=== PATIENT | female | born 1965 | race Caucasian/White ===

== ENCOUNTER 2016-11-29 14:23 | Emergency (ER) | payer MEDICARE, OTHER ==
--- NOTE | ~2016-11-29 | CR63 ---
[facility] A Service of [facility] & [facility] RADIOLOGY TEXT RESULTS PATIENT: VERONICA HICKMAN LOCATION: [facility] : 63 UNIT #: [id number] AGE: [address]: Neno Graves MD SEX: F ORDER DR: [id number] [facility] [address] [place], [place] [address] [id number] E MR#: [id number] Acc #: [id number] NAME: VERONICA HICKMAN : 1965 SEX: F STUDY DATE/TIME: 11/29/2016 13:50 UNIT: [facility] ROOM: STUDY DESCRIPTION: CR Chest 2 View Attending Physician: Neno Graves M.D. Referring Physician: Vin Mello Aprn Ordering Physician: Neno Graves M.D. Primary Care Physician: Vin Mello Aprn MEDICAL IMAGING REPORT This report is preliminary unless electronic signature is present EXAM Two-view chest 11/29/2016 HISTORY Shortness of air and cough for 1 week COMPARISON Chest 10/18/2015 FINDINGS 2 views of the chest demonstrate clear lungs. No pleural effusion or pneumothorax. Heart size and mediastinum are within normal limits. Pulmonary vasculature unremarkable. IMPRESSION No acute cardiopulmonary findings. Dictated by... Rudy Elias M.D. THIS IS AN ELECTRONICALLY VERIFIED REPORT Rudy Elias M.D. at 12/01/2016 7:47 AM FATMATA/dominique TD: 11/30/2016 13:17 JOB #: [id number] MEDICAL IMAGING REPORT COPY
[~2016-11-29 14:23] MED LIST: ACETAMINOPHEN PO; ADVAIR 5001 DISK W/D PO; ALBUTEROL 0.5ML INH; ALBUTEROL17 GM INH; ASPIRIN PO; ATROVENT HFA12.9 GM NEB; BACTRIM DS TABL1 TAB PO; CHANTIX PO; CIPRO PO; COMBIVENT INH14.7 GM INH; DOXYCYCLINE HY100 M1 PO; DUONEB 2.5-0.5 M3 ML NEB; FLEXERIL PO; HUMIBID L.1 TAB.SR . PO; IBUPROFEN PO; MOBIC15 MG PO; PREDNISONE PO; QVAR7.3 GM INH; SPIRIVA18 MCG INH; [UNRECOGNIZED DRUG - OTHER]
== END 2016-11-29 14:30 | disposition home or self-care (01) ==
LOC: CED 14:23
DX: J44.1 Chronic obstructive pulmonary disease with (acute) exacerbation (principal); F17.200 Nicotine dependence, unspecified, uncomplicated; Z90.49 Acquired absence of other specified parts of digestive tract; Z90.89 Acquired absence of other organs; Z79.899 Other long term (current) drug therapy
CPT/HCPCS: 71020; 94640; 99283; 99284

== ENCOUNTER 2016-12-25 21:35 | Inpatient (IN) | payer MEDICARE, OTHER ==
--- NOTE | ~2016-12-25 | CO ---
Unit #: [id number] #: [id number] Patient: VERONICA HICKMAN [id number] [address] [address] [id number] I MR#: [id number] NAME: VERONICA HICKMAN. ROOM: 330 Age: 51 Sex: F Admission Date: 12/25/2016 : 1965 Attending Physician: Yusuf Kent M.D. Primary Care Physician: Vin Mello, Denisse Consultation Date: 12/26/2016 CONSULTATION REPORT REASON FOR CONSULTATION Chronic obstructive pulmonary disease management. HISTORY OF PRESENT ILLNESS This is a 51-year-old female with a past medical history significant for extensive smoking, at least 1 pack per day since age 9, chronic obstructive pulmonary disease, nocturnal hypoxia. The patient presented to the emergency room with progressive shortness of breath, deep cough, productive sometimes with yellowish sputum. Her oxygen saturation was in the mid 70s on presentation. The patient stated that she has been sick very often with upper respiratory infection and chronic obstructive pulmonary disease (1) for the last two months. The patient stated that she tried to quit multiple times and the longest was nine months, but she always gets back to smoking. The patient was raised in [facility], where she was exposed to so many chemicals. The patient is on Spiriva, Advair and duo-neb. PAST MEDICAL HISTORY 1. Diabetes. 2. Chronic obstructive pulmonary disease. 3. Smoking. 4. Obesity. PAST SURGICAL HISTORY 1. Cholecystectomy. 2. Tonsillectomy. 3. . SOCIAL HISTORY The patient has smoked since age 9 at least half to 1 pack per day. She socially drinks. No history of drug use. FAMILY HISTORY Coronary artery disease and lung cancer. ALLERGIES Codeine. Unit #: [id number] #: [id number] Patient: VERONICA HICKMAN HOME MEDICATIONS 1. Albuterol. 2. Advair. 3. Spiriva. 4. Mucinex. 5. Multivitamin. REVIEW OF SYSTEMS Twelve point review of systems was obtained and was negative except for that mentioned in the history of present illness. PHYSICAL EXAMINATION GENERAL: The patient appears in mild respiratory distress. VITALS: Blood pressure is 141/59, respiratory rate 20, O2 saturations 96%. HEENT: Atraumatic, normocephalic. Extraocular muscles intact. NECK: Supple. No jugular venous distension. No lymphadenopathy. CHEST: Very diminished breath sounds bilaterally with diffuse wheezing. HEART: S1 and S2. No murmur, gallop or rub. ABDOMEN: Soft and nontender. Bowel sounds positive. No hepatosplenomegaly. EXTREMITIES: No edema or cyanosis. SKIN: No rashes. NEUROLOGIC: Awake, alert and oriented times three. No focal motor/sensory deficits. DIAGNOSTIC STUDIES IMAGING: Chest x-ray is normal. LABORATORY: pH 7.40, CO2 59. Creatinine 0.8, white blood cell count 3.8, hemoglobin 13.4. ASSESSMENT 1. Acute hypoxic respiratory failure. 2. Acute exacerbation of chronic obstructive pulmonary disease. 3. Smoking. 4. Morbid obesity. 5. Gestational diabetes. PLAN 1. Will continue oxygen at this point and titrate down/off as tolerated. 2. IV steroids and bronchodilators. 3. Antibiotics. 4. I spent more than 15 minutes counseling regarding smoking cessation. The patient currently is on nicotine patches. 5. Alpha I antitrypsin deficiency screening and PFTs as an outpatient. 6. The patient had a sleep study which was negative for sleep apnea. Dictated by... Johanna Diez TD: 12/26/2016 13:13 JOB #: [id number] Unit #: [id number] #: [id number] Patient: VERONICA HICKMAN CONSULTATION REPORT Page 1 of 1 X SASKIA PEARSON MD CONSULTATION REPORT
--- NOTE | ~2016-12-25 | DS ---
Unit #: [id number] #: [id number] Patient: VERONICA VARGHESE [id number] [address] [address] [id number] I MR#: [id number] NAME: VERONICA VARGHESE. ROOM: 330 Age: 51 Sex: F Admission Date: 12/25/2016 : 1965 Discharge Date: 12/30/2016 Attending Physician: Diana Epperson M.D. Primary Care Physician: Vin Mello, Director Of Digital Technology DISCHARGE SUMMARY PRINCIPAL DIAGNOSES 1. Acute on chronic hypoxic/hypercapnic respiratory failure, maintained on 3 L of oxygen per nasal cannula continuously. 2. Acute exacerbation of chronic obstructive pulmonary disease. 3. Acute on likely chronic bronchitis. 4. Hyperkalemia, resolved. 5. Hypertension, uncontrolled. 6. Newly diagnosed diabetes mellitus type 2, noninsulin requiring, with hemoglobin A1c of 7.2. 7. Obesity. 8. Tobaccoism. 9. Obstructive sleep apnea. FOOD SAFETY TECHNICIAN Dr. Arauz - Pulmonology. PROCEDURES 1. Chest x-ray on December 25, 2016, which was negative. 2. CT of the chest without contrast on December 27, 2016, with no infiltrate or nodules. Mild mediastinal adenopathy noted. 3. Chest x-ray on December 29, 2016, which was also normal. CLINICAL HISTORY/HOSPITAL COURSE Ms. Varghese is a 51-year-old female with a history of hypoxic respiratory failure nocturnally who presents to the emergency department with increasing shortness of breath and cough. The patient was found to be significantly hypoxic in the emergency department with an O2 sat of 75% on room air. Please refer to H and P for further details. The patient was subsequently admitted. Chest x-ray on upon presentation was negative. White count was also normal. Dr. Arauz was consulted. The patient was placed on antibiotics, IV steroids and nebulizer treatments. Over the course of the next several days, the patient's wheezing improved but she remained significantly hypoxic. Room air oxygen saturations at rest were as low as 83%. It has been determined that patient would require oxygen upon discharge which we will arrange at 3 L. She will follow up with Dr. Arauz as an outpatient and we will arrange for pulmonary rehab as well. The patient also has some significant hyperglycemia and hemoglobin A1c is noted to be elevated at 7.2. I don't feel that she requires medication at this time. I think she can receive dietary diabetic education, can have a repeat hemoglobin A1c in three months to further evaluate. No glucometer was provided during hospitalization. Unit #: [id number] #: [id number] Patient: VERONICA VARGHESE The patient also had hypertension which was uncontrolled and medications have been adjusted. Patient will be discharged home today with close followup. DISCHARGE CONDITION Stable. DISCHARGE STATUS Discharge to home. DISCHARGE MEDICATIONS 1. Oxygen at 3 L per nasal cannula continuously. 2. Proventil solution, one puff every four hours p.r.n. for shortness of breath. 3. Dulera 200/5, two puffs b.i.d. 4. We are discontinuing Advair. 5. Prednisone taper 10 mg tablets, 30 mg for two days, 20 mg for two days, 10 mg for two days, 5 mg for two days and then discontinue. 6. Spiriva 18 mcg, one puff daily. 7. Metoprolol tartrate 25 mg p.o. b.i.d. with one refill. 8. Lisinopril 20 mg p.o. daily with one refill. DISCHARGE INSTRUCTIONS The patient was instructed to follow a heart healthy constant carb diet. She can increase her activity as tolerated. She will wear oxygen at all times. FOLLOWUP The patient will follow up with Dr. Arauz in two weeks. I have begun arranging outpatient pulmonary rehab. The patient will follow with her primary care physician, Vin Mello, in two weeks. Dictated by... Diana Epperson M.D. KRYSTIAN/joanne TD: 12/31/2016 08:00 JOB #: [id number] DISCHARGE SUMMARY Page 1 of 1 X Diana Epperson MD X DISCHARGE SUMMARY
--- NOTE | ~2016-12-25 | CR72 ---
[facility] A Service of [facility] & [facility] RADIOLOGY TEXT RESULTS PATIENT: VERONICA HICKMAN LOCATION: [facility] 330- : [birth year] UNIT #: [id number] AGE: [address]: ELVIS CULP MD SEX: F ORDER DR: [id number] [facility] [address] [place], [place] [address] [id number] I MR#: [id number] Acc #: [id number] NAME: VERONICA HICKMAN. : 1965 SEX: F STUDY DATE/TIME: 12/25/2016 21:27 UNIT: [address] ROOM: [facility] STUDY DESCRIPTION: CR Chest Single View Portable Attending Physician: Karen Manriquez M.D. Ordering Physician: Ferdinand Walton M.D. Primary Care Physician: Vin Mello Aprn MEDICAL IMAGING REPORT This report is preliminary unless electronic signature is present EXAM Portable chest, 12/25 COMPARISON 11/29/2016 HISTORY COPD, shortness of breath, cough and congestion beginning yesterday. FINDINGS An AP portable view of the chest is obtained. The cardiac size remains normal, vascular pattern is normal and the lungs remain clear. CONCLUSION Negative portable chest. No acute process identified. Dictated by... Johnny Mathews M.D. THIS IS AN ELECTRONICALLY VERIFIED REPORT Johnny Mathews M.D. at 12/29/2016 7:21 AM MAKSIM/ricardo TD: 12/26/2016 02:11 JOB #: [id number] MEDICAL IMAGING REPORT Page 1 of 1 COPY
--- NOTE | ~2016-12-25 | CR63 ---
[facility] A Service of [facility] & [facility] RADIOLOGY TEXT RESULTS PATIENT: VERONICA HICKMAN LOCATION: [facility] 330- : 63 UNIT #: [id number] AGE: [address]: ELVIS KENT MD SEX: F ORDER DR: [id number] [facility] [address] [place], [place] [address] [id number] I MR#: [id number] Acc #: [id number] NAME: VERONICA HCIKMAN. : 1965 SEX: F STUDY DATE/TIME: 12/26/2016 7:39 UNIT: [address] ROOM: [facility] STUDY DESCRIPTION: CR Chest 2 View Attending Physician: Elvis Kent M.D. Ordering Physician: Karen Manriquez M.D. Primary Care Physician: Vin Mello Aprn MEDICAL IMAGING REPORT This report is preliminary unless electronic signature is present EXAM Chest PA and lateral 12/26 COMPARISON 12/25. HISTORY Shortness of breath, respiratory failure, congestion and fever beginning December 24. FINDINGS PA and lateral views of the chest are obtained. The heart size is stable. Vascular pattern is normal and the lungs remain clear. CONCLUSION 1. Stable chest. No active disease. Dictated by... Johnny Mathews M.D. THIS IS AN ELECTRONICALLY VERIFIED REPORT Johnny Mathews M.D. at 12/29/2016 7:20 AM MAKSIM/pretty TD: 12/26/2016 17:00 JOB #: [id number] MEDICAL IMAGING REPORT Page 1 of 1 COPY
--- NOTE | ~2016-12-25 | HP ---
Unit #: [id number] #: [id number] Patient: VERONICA HICKMAN [id number] [address] [address] [id number] I MR#: [id number] NAME: VERONICA HICKMAN. ROOM: 330 Age: 51 Sex: F Admission Date: 12/25/2016 : 1965 Attending Physician: Karen Manriquez M.D. Primary Care Physician: Vin Mello Aprn HISTORY AND PHYSICAL CHIEF COMPLAINT COPD exacerbation with respiratory failure. HISTORY This 51-year-old female with COPD is admitted for COPD exacerbation and respiratory failure. Patient states that over the past two months, she has required steroids from her primary care physician for recurrent flares of her COPD. However, she was in her usual state of health until yesterday when she felt fatigued. Around midnight, she developed sudden shortness of breath with a deep cough productive of yellow sputum, back pain with coughing, headache, wheezing, fevers and chills. She presented to this emergency department today with an O2 saturation initially of 75%. Patient normally uses nocturnal oxygen, but did use her oxygen during the day as well. In the ER, she was given stacked nebulizers and 125 mg of Solu-Medrol. On 4 liters of oxygen, her O2 saturation is about 89% to 90%. She is still quite tight on exam with a frequent cough productive of yellow sputum. Chest x-ray shows no acute disease. PAST MEDICAL HISTORY 1. Gestational diabetes. 2. COPD maintained on nocturnal oxygen and p.r.n. oxygen during the day. 3. Negative Cardiolite stress test, 2009. 4. Cholecystectomy. 5. Tonsillectomy. 6. C section x2. ALLERGIES To codeine. HOME MEDICATIONS 1. Albuterol and Ventolin. 2. Advair 115/21 two puffs b.i.d. 3. Spiriva. 4. Mucinex. 5. Multivitamin. FAMILY HISTORY CAD and lung cancer. SOCIAL HISTORY The patient lives with her daughter and fiance. She started smoking at age 9 and currently is smoking 1/2 pack per day of tobacco, seldom drinks Unit #: [id number] #: [id number] Patient: VERONICA HICKMAN alcohol. REVIEW OF SYSTEMS Notable for cough, head congestion, back pain, morning headaches, COPD, tobacco abuse, abovementioned surgeries, fevers, chills, shortness of breath, wheezing, and productive cough. All other systems were reviewed and are otherwise negative. PHYSICAL EXAMINATION GENERAL APPEARANCE: Obese, 51-year-old female who looks to be short of breath and is coughing frequently. VITAL SIGNS: Temperature 99.1, pulse 112, respirations 28, blood pressure 138/70, O2 saturation was 75% on room air, and current O2 saturation is 89% to 90% on 4 liters. Patient does, however, desat with any sort of movement. HEENT: Eyes: PERRLA. Extraocular muscles are intact. Pharynx: Benign. NECK: Supple without adenopathy or thyromegaly. CHEST: Expiratory wheezes and rhonchi. CARDIAC: Normal S1 and S2. Slightly tachycardic without murmur. ABDOMEN: Bowels sounds are present. No hepatosplenomegaly, tenderness, or masses. EXTREMITIES: Without C, C, or E. Pedal pulses are present. NEUROLOGIC: Patient is awake, alert, and oriented. Cranial nerves are intact. Equal strength throughout. DIAGNOSTIC STUDIES LABORATORY: Hematocrit is 42.1 and normal white count and platelet count. Cardiac markers negative. SMA-12: Glucose is 187. Blood cultures are pending. IMAGING: Chest x-ray: No acute disease. CARDIOVASCULAR: EKG: Sinus tachycardia, rate 105, otherwise normal. ASSESSMENT 1. COPD exacerbation with acute hypoxic respiratory failure. This may be related to bacterial bronchitis, rule out occult pneumonia, rule out influenza. 2. Ongoing tobacco abuse. 3. Hyperglycemia. PLANS 1. Steroids, bronchodilators, and Symbicort. Will place on Rocephin and doxycycline pending blood and sputum cultures along with repeat chest x-ray in the morning. 2. Smoking cessation counseling. 3. Influenza swab. 4. DVT and gastritis prophylaxes. 5. IV fluids. 6. Florastor. 7. Mucolytics. Dictated by Karen Manriquez M.D. AML/pc Unit #: [id number] #: [id number] Patient: JEANNE HICKMANWayne Sommers TD: 12/26/2016 05:51 JOB #: [id number] HISTORY AND PHYSICAL Page 1 of 1 X Karen Manriquez MD HISTORY AND PHYSICAL
--- NOTE | ~2016-12-25 | CT57 ---
[facility] A Service of [facility] & [facility] RADIOLOGY TEXT RESULTS PATIENT: VERONICA HICKMAN LOCATION: [facility] 330- : [birth year] UNIT #: [id number] AGE: [address]: ELVIS KENT MD SEX: F ORDER DR: [id number] [facility] [address] [place], [place] [address] [id number] I MR#: [id number] Acc #: [id number] NAME: VERONICA HICKMAN. : 1965 SEX: F STUDY DATE/TIME: 12/27/2016 16:56 UNIT: [address] ROOM: [facility] STUDY DESCRIPTION: CT Chest Wo Cont Attending Physician: Elvis Kent M.D. Ordering Physician: Yair Arauz M.D. Primary Care Physician: Vin Mello Aprn MEDICAL IMAGING REPORT This report is preliminary unless electronic signature is present EXAM CT chest without contrast HISTORY Cough, shortness of air for 3 days. Lung nodule. TECHNIQUE/COMPARISON CT chest without contrast is compared to prior CT 05/28/2016. This CT exam was performed with one or more of the following radiation dose reduction techniques: automatic exposure control, adjustment of mA and/or kV according to patient size, and iterative reconstruction. FINDINGS No focal airspace infiltrates or pleural effusions. There has been interval resolution of the irregularly marginated patchy density in the anteromedial right mid lung since the prior CT 05/28/2016, and there are no new nodules. No pleural effusions. Mild right paratracheal adenopathy measuring 1.1 cm and additional pretracheal and aortopulmonic window and precarinal and subcarinal nodes are mildly enlarged, unchanged compared to the prior CT. These could be reactive or inflammatory. Normal caliber thoracic aorta. Cholecystectomy. IMPRESSION 1. Interval resolution of the irregularly marginated subpleural density in the anteromedial right mid lung since prior CT from 05/28/2016, suggesting an inflammatory process which has since resolved. 2. No pulmonary nodules or infiltrates or effusions. 3. Stable mild mediastinal adenopathy could be reactive or inflammatory. Dictated by... Erik Rey M.D. [facility] A Service of [facility] RADIOLOGY TEXT RESULTS PATIENT: VERONICA HICKMAN LOCATION: [facility] 330-01 : [birth year] UNIT #: [id number] AGE: [address]: ELVIS KENT MD SEX: F ORDER DR: THIS IS AN ELECTRONICALLY VERIFIED REPORT Erik Rey M.D. at 12/28/2016 11:32 PM DFL/to TD: 12/28/2016 16:21 JOB #: [id number] MEDICAL IMAGING REPORT Page 1 of 1 COPY
--- NOTE | ~2016-12-25 | EKG ---
PATIENT: VERONICA HICKMAN UNIT #: [id number] Ventricular Rate: 105 BPM Atrial Rate: 105 BPM P-R Interval: 128 ms QRS Duration: 92 ms Q-T Interval: 326 ms QTC Calculation(Bezet): 430 ms P [place]: 78 degrees Calculated R [place]: 82 degrees Calculated T [place]: 63 degrees Diagnosis Line: Sinus tachycardia Diagnosis Line: Otherwise normal ECG Diagnosis Line: Poor data quality Diagnosis Line: No previous ECGs available Diagnosis Line: Confirmed by CELESTINE AGUILLON MD ([id number]) on Diagnosis Line: 12/27/2016 4:44:23 PM INTERPRETING MD: KIRT
--- NOTE | ~2016-12-25 | CR63 ---
[facility] A Service of [facility] & [facility] RADIOLOGY TEXT RESULTS PATIENT: VERONICA HICKMAN LOCATION: [facility] 330-01 : 63 UNIT #: [id number] AGE: [address]: Diana Epperson MD SEX: F ORDER DR: [id number] [facility] [address] [place], [place] [address] [id number] I MR#: [id number] Acc #: [id number] NAME: VERONICA HICKMAN : 1965 SEX: F STUDY DATE/TIME: 12/29/2016 12:08 UNIT: [address] ROOM: [facility] STUDY DESCRIPTION: CR Chest 2 View Attending Physician: Diana Epperson M.D. Ordering Physician: Diana Epperson M.D. Primary Care Physician: Vin Mello Aprn MEDICAL IMAGING REPORT This report is preliminary unless electronic signature is present EXAM Chest x-ray, 12/29/2016. HISTORY 51-year-old female with a 5-day history of shortness of air, cough, and chest congestion. History of respiratory failure. TECHNIQUE AP and lateral upright chest series. FINDINGS The exam shows no active disease in the chest. Heart size and pulmonary vascularity are normal. The lungs appear clear. No visible pulmonary infiltrate or pleural effusion. No significant change since 12/26/2016. IMPRESSION Negative chest. Dictated by... Adalberto Martínez M.D. THIS IS AN ELECTRONICALLY VERIFIED REPORT Adalberto Martínez M.D. at 12/29/2016 3:58 PM FORRESTW/conchita TD: 12/29/2016 14:42 JOB #: [id number] MEDICAL IMAGING REPORT Page 1 of 1 COPY
[2016-12-25 21:38] LABS: BASOPHIL% 0.5 % (0-2.5); EOSINOPHIL% 0.4 % (0.0-7.0); HEMATOCRIT 42.1 % (35.0-45.0); HEMOGLOBIN 13.4 gm/dL (12.0-16.0); LYMPHOCYTE# 0.8 X10e3 (1.0-3.5); LYMPHOCYTE% 15.8 % (17.0-45.0); MEAN CELL VOLUME 85.6 FL (83-96); MEAN CORPUSCULAR HEMOGLOBIN 27.3 PG (28-34); MEAN CORPUSCULAR HGB CONC 31.8 g/dL (30-36); MEAN PLATELET VOLUME 7.6 FL (6.5-11.5); MONOCYTE# 0.4 X10e3 (0-1.0); MONOCYTE% 7.1 % (3.0-12.0); NEUTROPHIL% 76.2 % (40-75); PLATELET COUNT 193 X10e3 (140-420); RED BLOOD COUNT 4.92 X10e (3.90-5.30); RED CELL DISTRIBUTION WIDTH 14.5 % (11.0-15.5); WHITE BLOOD COUNT 5.3 X10e3 (4.0-10.5)
[2016-12-25 21:39] LABS: DIFF IND NO
[2016-12-25 21:51] LABS: POC - CKMB 3.3 ng/mL (0.0-7.9); POC - TROPONIN <0.05 ng/mL (<=0.05)
[2016-12-25 22:04] LABS: ALBUMIN SERUM 3.8 g/dL (3.5-5.0); BILIRUBIN, DIRECT 0.1 mg/dL (0.0-0.2); BILIRUBIN,INDIRECT 0.2 mg/dL (0.0-0.9); BILIRUBIN,TOTAL 0.3 mg/dL (0.2-2.0); CALCIUM SERUM 8.9 mg/dL (8.4-10.2); CREATININE SERUM 0.8 mg/dL (0.6-1.4); GLOM FILT RATE Estimated 84.8 mL/min (>60); POTASSIUM 4.3 mmol/L (3.5-5.1); PROTEIN TOTAL SERUM 7.1 g/dL (6.0-8.3)
[2016-12-25 23:35] LABS: INFLUENZA A NEG (NEG); INFLUENZA B NEG (NEG)
[2016-12-26] MEDS ORDERED: ADVAIR 115-21 INH (02:23)
[2016-12-26] MEDS ORDERED: PROVENTIL INH0.5 ML INH (02:23)
[2016-12-26] MEDS ORDERED: ALBUTEROL17 GM INH (02:24)
[2016-12-26] MEDS ORDERED: SPIRIVA18 MCG INH (02:24)
[2016-12-26] MEDS ORDERED: PREDNISONE10 MG PO (02:26)
[2016-12-26 06:08] LABS: BASOPHIL% 0.3 % (0-2.5); HEMATOCRIT 42.6 % (35.0-45.0); HEMOGLOBIN 13.4 gm/dL (12.0-16.0); LYMPHOCYTE# 0.3 X10e3 (1.0-3.5); LYMPHOCYTE% 7.2 % (17.0-45.0); MEAN CELL VOLUME 86.1 FL (83-96); MEAN CORPUSCULAR HEMOGLOBIN 27.1 PG (28-34); MEAN CORPUSCULAR HGB CONC 31.4 g/dL (30-36); MEAN PLATELET VOLUME 8.4 FL (6.5-11.5); MONOCYTE% 1.2 % (3.0-12.0); NEUTROPHIL# 3.5 X10e3 (1.5-7.1); NEUTROPHIL% 91.3 % (40-75); PLATELET COUNT 186 X10e3 (140-420); RED BLOOD COUNT 4.95 X10e (3.90-5.30); RED CELL DISTRIBUTION WIDTH 14.4 % (11.0-15.5); WHITE BLOOD COUNT 3.8 X10e3 (4.0-10.5)
[2016-12-26 06:23] LABS: DIFF IND NO
[2016-12-26 06:32] LABS: BUN/CREATININE RATIO 12.5; CREATININE SERUM 0.8 mg/dL (0.6-1.4); GLOM FILT RATE Estimated 84.8 mL/min (>60); POTASSIUM 4.6 mmol/L (3.5-5.1)
[2016-12-27 07:12] LABS: HEMATOCRIT 43.2 % (35.0-45.0); HEMOGLOBIN 13.5 gm/dL (12.0-16.0); MEAN CELL VOLUME 86.4 FL (83-96); MEAN CORPUSCULAR HGB CONC 31.2 g/dL (30-36); RED CELL DISTRIBUTION WIDTH 14.8 % (11.0-15.5)
[2016-12-27 07:40] LABS: WHITE BLOOD COUNT 7.9 X10e3 (4.0-10.5)
[2016-12-27 07:52] LABS: CALCIUM SERUM 9.4 mg/dL (8.4-10.2); CREATININE SERUM 0.6 mg/dL (0.6-1.4); GLOM FILT RATE Estimated 104.8 mL/min (>60); POTASSIUM 5.1 mmol/L (3.5-5.1)
[2016-12-28 07:49] LABS: BASOPHIL% 0.2 % (0-2.5); DIFF IND NO; HEMOGLOBIN 13.5 gm/dL (12.0-16.0); LYMPHOCYTE% 12.3 % (17.0-45.0); MEAN CELL VOLUME 87.2 FL (83-96); MEAN CORPUSCULAR HEMOGLOBIN 27.3 PG (28-34); MEAN CORPUSCULAR HGB CONC 31.4 g/dL (30-36); MEAN PLATELET VOLUME 8.2 FL (6.5-11.5); MONOCYTE# 0.5 X10e3 (0-1.0); MONOCYTE% 5.7 % (3.0-12.0); NEUTROPHIL# 6.8 X10e3 (1.5-7.1); NEUTROPHIL% 81.8 % (40-75); PLATELET COUNT 238 X10e3 (140-420); RED BLOOD COUNT 4.93 X10e (3.90-5.30); RED CELL DISTRIBUTION WIDTH 14.5 % (11.0-15.5); WHITE BLOOD COUNT 8.4 X10e3 (4.0-10.5)
[2016-12-28 08:24] LABS: CALCIUM SERUM 9.2 mg/dL (8.4-10.2); CREATININE SERUM 0.6 mg/dL (0.6-1.4); GLOM FILT RATE Estimated 104.8 mL/min (>60); POTASSIUM 5.3 mmol/L (3.5-5.1)
[2016-12-29 08:15] LABS: BUN/CREATININE RATIO 36.66; CALCIUM SERUM 8.9 mg/dL (8.4-10.2); CREATININE SERUM 0.6 mg/dL (0.6-1.4); GLOM FILT RATE Estimated 104.8 mL/min (>60); POTASSIUM 4.3 mmol/L (3.5-5.1)
[2016-12-30 06:32] LABS: BUN/CREATININE RATIO 38.57; CREATININE SERUM 0.7 mg/dL (0.6-1.4); GLOM FILT RATE Estimated 99.6 mL/min (>60); POTASSIUM 4.1 mmol/L (3.5-5.1)
[2016-12-30] MEDS ORDERED: PREDNISONE (11:47)
[2016-12-30] MEDS ORDERED: DULERA 200 MCG/13 GM INH (11:48)
[2016-12-30] MEDS ORDERED: LISINOPRIL20 MG PO (11:49)
[2016-12-30] MEDS ORDERED: METOPROLOL TAR25 MG PO (11:49)
== END 2016-12-30 13:29 | disposition home or self-care (01) | DRG 189 ==
LOC: CED 21:35 → CEDOF 23:00 → C3A PCU 12-26 01:33
PROVIDERS: Emergency Medicine; Internal Medicine
DX: J96.21 Acute and chronic respiratory failure with hypoxia (principal); J44.0 Chronic obstructive pulmonary disease with (acute) lower respiratory infection; J44.1 Chronic obstructive pulmonary disease with (acute) exacerbation; J96.22 Acute and chronic respiratory failure with hypercapnia; J20.9 Acute bronchitis, unspecified; E87.5 Hyperkalemia; I10 Essential (primary) hypertension; E11.65 Type 2 diabetes mellitus with hyperglycemia; F17.210 Nicotine dependence, cigarettes, uncomplicated; E66.01 Morbid (severe) obesity due to excess calories; Z68.36 Body mass index [BMI] 36.0-36.9, adult; G47.33 Obstructive sleep apnea (adult) (pediatric); Z90.49 Acquired absence of other specified parts of digestive tract; Z88.5 Allergy status to narcotic agent; Z86.32 Personal history of gestational diabetes
CPT/HCPCS: 36415; 71010; 71020; 71250; 80048; 80076; 82553; 82947; 83036; 83605; 83880; 84484; 85025; 85027; 87040; 87070; 87205; 87804; 93005; 94640; 94664; 94760; 96374; 97110; 97116; 97161; 97165; 99285; G8978-GP; G8979-GP; G8987-GO; G8988-GO; G8989-GO; J0696; J1650; J1815; J2920; J2930

== ENCOUNTER → 2017-02-02 | Outpatient (CLI) | payer MEDICARE, OTHER ==
[~2017-02-02] MED LIST changes: +ADVAIR 115-21 INH; +DULERA 200 MCG/13 GM INH; +LISINOPRIL20 MG PO; +METOPROLOL TAR25 MG PO; +PREDNISONE; +PREDNISONE10 MG PO; +PROVENTIL INH0.5 ML INH
--- NOTE | ~2017-02-02 | CT55 ---
[facility] A Service of [facility] RADIOLOGY TEXT RESULTS PATIENT: VERONICA HICKMAN LOCATION: [facility] : 63 UNIT #: [id number] AGE: [address]: Vin Mello APRN SEX: F ORDER DR: [id number] [place] [id number] [facility]. [place], [place] [address] [id number] O MR#: [id number] Acc #: [id number] NAME: VERONICA HICKMAN : 1965 SEX: F STUDY DATE/TIME: 02/02/2017 9:11 UNIT: [facility] ROOM: STUDY DESCRIPTION: CT Chest W Con Attending Physician: Vin Mello Aprn Referring Physician: Vin Mello Aprn Ordering Physician: Vin Mello Aprn Primary Care Physician: Vin Mello Aprn MEDICAL IMAGING REPORT This report is preliminary unless electronic signature is present EXAM CT of the chest with contrast INDICATION Followup lung nodule. COPD. TECHNIQUE CT of the chest was performed with contrast. Coronal and sagittal reformatted images were obtained. This CT exam was performed with one or more of the following radiation dose reduction techniques: automatic exposure control, adjustment of mA and/or kV according to patient size, and iterative reconstruction. COMPARISON 12/27/2016 FINDINGS There are no new infiltrates. There is no suspicious pulmonary nodule. There are prominent mediastinal lymph nodes which are overall not significantly changed. Some of them may be a little smaller. An index node in the right paratracheal region is measuring 8.0 mm. Previously it was about 10.0 mm. There is no pleural effusion. Limited imaging of the upper abdomen demonstrates a cholecystectomy. There is a stable tiny adrenal gland nodule on the left. Bone windows are unremarkable. IMPRESSION Overall there has been no real significant change. There is no new infiltrate or new suspicious pulmonary nodule. There are some prominent mediastinal lymph nodes again present. Some of them may be a little. No new lymphadenopathy. Dictated by... [facility] A Service of [facility] RADIOLOGY TEXT RESULTS PATIENT: VERONICA HICKMAN LOCATION: [facility] : 63 UNIT #: [id number] AGE: [address]: Vin Mello APRN SEX: F ORDER DR: Mayo Vasquez M.D. THIS IS AN ELECTRONICALLY VERIFIED REPORT Mayo Vasquez M.D. at 02/03/2017 7:45 AM Abel TD: 02/02/2017 10:43 JOB #: [id number] MEDICAL IMAGING REPORT Page 1 of 1 COPY
[2017-02-02 11:21] LABS: POC - CREATININE 0.65 mg/dL (0.44-1.03); POC - GFR >60.0 mL/min (>60)
== END | disposition home or self-care (01) ==
LOC: CCAT 01-12 14:20
PROVIDERS: Nurse Practitioner Family
DX: J44.9 Chronic obstructive pulmonary disease, unspecified (principal); R91.8 Other nonspecific abnormal finding of lung field
CPT/HCPCS: 71260; 82565; Q9967

== ENCOUNTER → 2017-06-02 | Outpatient (CLI) | payer MEDICARE | END | disposition home or self-care (01) | LOC: CECH 05-28 13:45 | DX: R06.02 Shortness of breath (principal); I10 Essential (primary) hypertension; E11.9 Type 2 diabetes mellitus without complications | CPT/HCPCS: 93306 ==